=== PATIENT | female | born 1980 | race Caucasian/White ===

== ENCOUNTER 2021-04-22 09:29 | Emergency (ER) | payer SELFPAY ==
[2021-04-22] MEDS ORDERED: CEPHALEXIN500 MG PO (11:43)
[2021-04-22] MEDS ORDERED: IBU800 MG PO (11:46)
== END 2021-04-22 12:35 | disposition home or self-care (01) ==
LOC: ER1 09:29
DX: S61.412A Laceration without foreign body of left hand, initial encounter (principal); F17.210 Nicotine dependence, cigarettes, uncomplicated; W26.0XXA Contact with knife, initial encounter; Y92.009 Unspecified place in unspecified non-institutional (private) residence as the place of occurrence of the external cause
CPT/HCPCS: 90471; 99283

== ENCOUNTER → 2022-02-23 | Outpatient (CLI) | payer BC ==
[~2022-02-23] MED LIST: CEPHALEXIN500 MG PO; COLACE100 MG PO; IBU800 MG PO; LYSTEDA650 MG PO; MOBIC7.5 MG PO; PERCOCET 5/325 T1 EA PO
[2022-02-23 09:02] LABS: HEMOGLOBIN 14.8 gm/dl (12.3-15.3); RED BLOOD COUNT 4.91 M/UL (4.00-5.10); WHITE BLOOD COUNT 6.7 K/UL (4.5-11.0)
== END ==
LOC: OPSV2 08:00
PROVIDERS: Obstetrics & Gynecology
DX: Z01.812 Encounter for preprocedural laboratory examination (principal); N93.9 Abnormal uterine and vaginal bleeding, unspecified
CPT/HCPCS: 36415; 81001; 84702; 85025

== ENCOUNTER → 2022-02-24 | Day surgery (SDC) | payer BC | END | disposition home or self-care (01) | LOC: OR 11:17 | DX: N84.0 Polyp of corpus uteri (principal); N93.9 Abnormal uterine and vaginal bleeding, unspecified; K21.9 Gastro-esophageal reflux disease without esophagitis; F17.210 Nicotine dependence, cigarettes, uncomplicated; Z79.899 Other long term (current) drug therapy; Z20.822 Contact with and (suspected) exposure to COVID-19 | CPT/HCPCS: J0690; J1100; J1885; J2001; J2250; J2405; J2704; J7120 ==